=== PATIENT | male | born 1940 | race Caucasian/White ===

== ENCOUNTER 2016-07-03 07:30 | Day surgery (SDC) | payer MEDICARE, BC ==
[~2016-07-03 07:30] MED LIST: RINGERS SOLUTION,LACTATED 1,000 ML IV PRN
--- OUTSIDE RECORDS SUMMARY | 2016-07-03 07:34 | XMS REPORT | Continuity of Care Document ---
:1940 Author Organization [facility] ([facility]) Address [address] [place] [address] Phone [phone] Care Team Providers Name Role Phone Unavailable Primary Care Provider Unavailable Source Comments This disclosure is being made pursuant to the Care Everywhere program, applicable federal and state laws, and may not contain all informaitonavailable regarding this patient.[facility] ([facility]) Active Allergies and Adverse Reactions Allergen Noted Date Severity Reactions Comments Penicillins Urticaria (Hives) Current Medications Not on file Active Problems Not on file Social History Tobacco Use Types Packs/Day Years Used Date Never Assessed Last Filed Vital Signs Vital Sign Reading Time Taken Blood Pressure 128/87 05/24/2005 12:45 PM [employer] Pulse 95 05/24/2005 12:45 PM [employer] Temperature 35.7 C (96.26 F) 05/24/2005 12:45 PM [employer] Respiratory Rate - - Height - - Weight 88.996 kg (196 lb 3.2 oz) 05/24/2005 12:42 PM [employer] Body Mass Index - - Oxygen Saturation - - Plan of Care Health Maintenance Due Date Last Done Comments Hepatitis B Vaccine (1 of 3 - Primary Series) 1940 Tdap Vaccine 1953 Lipid Disorder Screening 1960 Td Vaccine 1960 Colonoscopy 10/18/1992 Prostate Cancer Screening 1992 Zoster Vaccine 2002 Pneumococcal Vaccine (1 of 2 - PCV13) 10/20/2007 Influenza Vaccine: Seasonal (#1) 11/29/2015 Results from Last 3 Months Not on file
[2016-07-03] MEDS ORDERED: RINGERS SOLUTION,LACTATED 1,000 ML IV ONE (08:10)
[2016-07-03] MEDS ORDERED: BUPIVACAINE HCL 50 ML VIAL IJ ONE (08:55)
[2016-07-03] MEDS ORDERED: oxyCODONE HCL/ACETAMINOPHEN 1 TAB TABLET PO PRN (09:38)
[2016-07-03 10:29] VITALS: BP 143/85
--- NOTE | 2016-07-04 15:45 | OR ---
Operative Report - Dictated Report Narrative: OPERATIVE REPORT DATE OF OPERATION: 07/03/2016 PREOPERATIVE DIAGNOSIS: No recent dedicated colon studies. Anal skin tag POSTOPERATIVE DIAGNOSIS: Normal colonoscopy. Anal skin tag OPERATION: Colonoscopy and excision of anal skin tag SURGEON: Abbie Bolaños MD ANESTHESIA: MAC/local Tu Srinivasan CRNA INDICATIONS FOR PROCEDURE: Patient is a 75-year-old male referred by Dr Yost. He has not had a colon exam for over 10 years. He had major hemorrhoid surgery at age 21 and has a residual external skin tag which interferes with hygiene. FINDINGS: Normal colonoscopy. 1 cm external anal skin tag NARRATIVE OF PROCEDURE: The patient was identified in the holding area, and prior to the administration of anesthetic, a multidisciplinary timeout was observed. With the patient in the left lateral position and after the administration of intravenous sedation, the perineum was inspected. There was no evidence of pilonidal disease or skin breakdown. The external appearance of the anus was normal with exception of a pedunculated skin tag in the right anterior quadrant. Sphincter tone was good. The flexible fiberoptic colonoscope was inserted into the rectum which was insufflated with air. The rectal mucosa and submucosal vascular pattern appeared normal, the prep was seen to be complete. The scope was advanced through the sigmoid colon, up the descending colon, and around the splenic flexure where the triangular haustral architecture of the transverse colon was seen. The scope was advanced across the transverse colon, around the hepatic flexure to the cecum, where the confluence of tenia and the ileocecal valve were identified. The mucosa at this level appeared normal. The scope was then slowly withdrawn in a circular fashion so that all aspects of colonic mucosa were inspected. The colon was somewhat capacious in caliber but normal in course. The haustral architecture appeared well preserved throughout with no evidence of external compression. The mucosa and submucosal vascular pattern appeared normal, specifically there was no gross evidence to suggest colitis or inflammatory bowel disease and no AV malformations were seen. No diverticulosis was demonstrated. No polyps were encountered. The scope was gradually withdrawn to the level of the rectum. As much insufflated air as possible was removed. The scope was withdrawn from the patient. Next the external anal skin tag was prepped with Betadine and anesthetized with 0.5% Marcaine with epinephrine. The tag was then excised by application of a LigaSure device. No specimen was submitted due to the gross benign appearance of the tissue. The resulting defect was then approximated with 3 interrupted sutures of 2-0 chromic. There was no blood loss. The patient tolerated the anesthetic and procedure well without complication and was transferred back to the ambulatory surgery area awake and in stable condition. The patient remained stable throughout a period of postoperative observation. He denied abdominal or rectal discomfort, was able to tolerate by mouth intake, and was up without assistance. I shared the operative findings with the patient and he was given copies of the photographs which appear in the medical record. He was discharged home with instructions not to engage in hazardous activity today, but may resume normal activity tomorrow, and advance diet as tolerated. He is to continue those medications as listed in the history and physical exam. He has phone numbers to call if needed for discomfort or bleeding and a return office appointment was made for 07/11/2016. RECOMMENDATION: Colon surveillance in 10 years depending upon findings and symptoms Reviewed and electronically signed
== END 2016-07-03 07:31 | disposition home or self-care (01) ==
LOC: AMB 07:30
PROVIDERS: ATTEND Surgery
PROC: 0DBQXZZ Excision of Anus, External Approach (ICD-10-PCS; 2016-07-03)
PROC: 0DJD8ZZ Inspection of Lower Intestinal Tract, Via Natural or Artificial Opening Endoscopic (ICD-10-PCS; principal; 2016-07-03 09:00)
DX: Z12.11 Encounter for screening for malignant neoplasm of colon (principal); K64.4 Residual hemorrhoidal skin tags; Z87.891 Personal history of nicotine dependence; Z68.28 Body mass index [BMI] 28.0-28.9, adult
CPT/HCPCS: 46220; G0121

== ENCOUNTER 2016-12-18 13:41 | Emergency (ER) | payer MEDICARE, BC ==
[2016-12-18 13:59] VITALS: BP 145/91
== END 2016-12-18 13:59 | disposition home or self-care (01) ==
LOC: ER 13:41
DX: Z13.6 Encounter for screening for cardiovascular disorders (principal)